=== PATIENT | male | born 1940 | race Two or more races ===

== ENCOUNTER 2017-10-19 07:57 | Outpatient (CLI) | payer OTHER ==
[~2017-10-19 07:57] MED LIST: AREDIA; BTREX; HYDROCHLOROTH12.5 M1; INTEGRA F; NORVASC10 MG; PRILOSEC10 MG; SYNTEST D.S TAB1 TAB; TAMSULOSIN; [UNRECOGNIZED DRUG - OTHER]
== END 2017-10-19 08:34 | disposition home or self-care (01) ==
LOC: LAB 07:57
DX: C64.2 Malignant neoplasm of left kidney, except renal pelvis (principal); C79.51 Secondary malignant neoplasm of bone; D63.1 Anemia in chronic kidney disease; D51.3 Other dietary vitamin B12 deficiency anemia; I10 Essential (primary) hypertension; E03.2 Hypothyroidism due to medicaments and other exogenous substances; E55.9 Vitamin D deficiency, unspecified; K31.83 Achlorhydria; R97.0 Elevated carcinoembryonic antigen [CEA]; R97.8 Other abnormal tumor markers; D50.8 Other iron deficiency anemias; D51.8 Other vitamin B12 deficiency anemias; E03.8 Other specified hypothyroidism; K90.89 Other intestinal malabsorption; N40.0 Benign prostatic hyperplasia without lower urinary tract symptoms

== ENCOUNTER 2018-01-19 08:18 | Outpatient (CLI) | payer OTHER | END 2018-01-19 12:01 | disposition home or self-care (01) | LOC: LAB 08:18 | DX: N40.0 Benign prostatic hyperplasia without lower urinary tract symptoms (principal); C64.2 Malignant neoplasm of left kidney, except renal pelvis; R97.20 Elevated prostate specific antigen [PSA]; C79.51 Secondary malignant neoplasm of bone; D63.1 Anemia in chronic kidney disease; D51.3 Other dietary vitamin B12 deficiency anemia; I10 Essential (primary) hypertension; E03.2 Hypothyroidism due to medicaments and other exogenous substances; E55.9 Vitamin D deficiency, unspecified; K31.83 Achlorhydria; R97.0 Elevated carcinoembryonic antigen [CEA]; D50.8 Other iron deficiency anemias; D51.8 Other vitamin B12 deficiency anemias; E03.8 Other specified hypothyroidism; R97.8 Other abnormal tumor markers ==

== ENCOUNTER 2018-05-24 07:43 | Outpatient (CLI) | payer OTHER | END 2018-05-24 08:30 | disposition home or self-care (01) | LOC: LAB 07:43 | DX: C64.2 Malignant neoplasm of left kidney, except renal pelvis (principal); C79.51 Secondary malignant neoplasm of bone; D63.1 Anemia in chronic kidney disease; D51.3 Other dietary vitamin B12 deficiency anemia; I10 Essential (primary) hypertension; E03.2 Hypothyroidism due to medicaments and other exogenous substances; E55.9 Vitamin D deficiency, unspecified; K31.83 Achlorhydria; R97.0 Elevated carcinoembryonic antigen [CEA]; R97.8 Other abnormal tumor markers; D50.8 Other iron deficiency anemias; D51.8 Other vitamin B12 deficiency anemias; E03.8 Other specified hypothyroidism; D50.0 Iron deficiency anemia secondary to blood loss (chronic); R19.5 Other fecal abnormalities; R79.82 Elevated C-reactive protein (CRP) ==

== ENCOUNTER 2018-11-17 09:13 | Outpatient (CLI) | payer OTHER | END 2018-11-17 09:41 | disposition home or self-care (01) | LOC: LAB 09:13 | DX: C64.2 Malignant neoplasm of left kidney, except renal pelvis (principal); C79.51 Secondary malignant neoplasm of bone; D63.1 Anemia in chronic kidney disease; D51.3 Other dietary vitamin B12 deficiency anemia; I10 Essential (primary) hypertension; E03.2 Hypothyroidism due to medicaments and other exogenous substances; E55.9 Vitamin D deficiency, unspecified; K31.83 Achlorhydria; R97.0 Elevated carcinoembryonic antigen [CEA]; R97.8 Other abnormal tumor markers; D50.8 Other iron deficiency anemias; D51.8 Other vitamin B12 deficiency anemias; E03.8 Other specified hypothyroidism; R25.9 Unspecified abnormal involuntary movements; C22.9 Malignant neoplasm of liver, not specified as primary or secondary; E78.2 Mixed hyperlipidemia; I11.9 Hypertensive heart disease without heart failure; E56.8 Deficiency of other vitamins; N39.0 Urinary tract infection, site not specified; Z12.11 Encounter for screening for malignant neoplasm of colon; R19.5 Other fecal abnormalities; N19 Unspecified kidney failure; E11.9 Type 2 diabetes mellitus without complications; K92.1 Melena; C18.0 Malignant neoplasm of cecum; R80.8 Other proteinuria ==

== ENCOUNTER 2018-12-18 07:49 | Outpatient (CLI) | payer OTHER | END 2018-12-18 07:55 | disposition home or self-care (01) | LOC: LAB 07:49 | DX: N19 Unspecified kidney failure (principal) ==

== ENCOUNTER 2019-04-05 05:05 | Day surgery (SDC) | payer OTHER ==
[~2019-04-05 05:05] MED LIST changes: +SYNTHROID100 MCG PO
== END 2019-04-05 20:05 | disposition home or self-care (01) ==
LOC: CIR.AMB 05:05
DX: C67.2 Malignant neoplasm of lateral wall of bladder (principal); C67.4 Malignant neoplasm of posterior wall of bladder; C67.5 Malignant neoplasm of bladder neck

== ENCOUNTER 2019-04-19 08:36 | Outpatient (CLI) | payer OTHER | END 2019-04-19 08:50 | disposition home or self-care (01) | LOC: MRI 08:36 | DX: C67.1 Malignant neoplasm of dome of bladder (principal) | CPT/HCPCS: 72195; 74181 ==

== ENCOUNTER 2019-04-24 07:50 | Outpatient (CLI) | payer OTHER | END 2019-04-24 08:02 | disposition home or self-care (01) | LOC: LAB 07:50 | DX: N18.3 Chronic kidney disease, stage 3 (moderate) (principal); E87.5 Hyperkalemia ==

== ENCOUNTER 2019-04-24 14:34 | Inpatient (IN) | payer OTHER ==
[~2019-04-24] VITALS: Ht 172.7 cm; Wt 65.3 kg
[2019-04-29] MEDS ORDERED: [UNRECOGNIZED DRUG - OTHER] PO (08:23)
[2019-04-29] MEDS ORDERED: IBERSARTAN PO (08:24)
[2019-04-29] MEDS ORDERED: B TREX PO (08:25)
[2019-05-13] MEDS ORDERED: IRBESARTAN-HCT1 EACH PO (08:18)
[2019-05-13] MEDS ORDERED: TAMSULOSIN HCL0.4 MG PO (08:20)
== END 2019-05-21 14:29 | disposition home or self-care (01) | DRG 657 ==
LOC: CIR.AMB 04-29 07:15 → EDSTATUS 04-29 07:15 → ADM 04-29 07:15 → O/R 05-13 05:55 → SURH 05-13 05:55
PROVIDERS: Surgery; ADMIT Urology
PROC: 0T164ZB Bypass Right Ureter to Bladder, Percutaneous Endoscopic Approach (ICD-10-PCS; 2019-05-13)
PROC: 0DTB0ZZ Resection of Ileum, Open Approach (ICD-10-PCS; 2019-05-13)
PROC: 0DTK0ZZ Resection of Ascending Colon, Open Approach (ICD-10-PCS; 2019-05-13)
PROC: 0TB68ZZ Excision of Right Ureter, Via Natural or Artificial Opening Endoscopic (ICD-10-PCS; principal; 2019-05-13 07:00)
PROC: 07BB4ZZ Excision of Mesenteric Lymphatic, Percutaneous Endoscopic Approach (ICD-10-PCS; 2019-05-13 07:00)
PROC: 30233N1 Transfusion of Nonautologous Red Blood Cells into Peripheral Vein, Percutaneous Approach (ICD-10-PCS; 2019-05-16)
DX: C66.1 Malignant neoplasm of right ureter (principal); C78.4 Secondary malignant neoplasm of small intestine; C77.5 Secondary and unspecified malignant neoplasm of intrapelvic lymph nodes; C77.2 Secondary and unspecified malignant neoplasm of intra-abdominal lymph nodes; D62 Acute posthemorrhagic anemia; C67.8 Malignant neoplasm of overlapping sites of bladder; I13.10 Hypertensive heart and chronic kidney disease without heart failure, with stage 1 through stage 4 chronic kidney disease, or unspecified chronic kidney disease; N18.3 Chronic kidney disease, stage 3 (moderate); R73.01 Impaired fasting glucose; E03.8 Other specified hypothyroidism; N40.0 Benign prostatic hyperplasia without lower urinary tract symptoms

== ENCOUNTER 2019-05-27 09:21 | Outpatient (CLI) | payer OTHER ==
[~2019-05-27 09:21] MED LIST changes: +B TREX PO; +IBERSARTAN PO; +IRBESARTAN-HCT1 EACH PO; +TAMSULOSIN HCL0.4 MG PO; +[UNRECOGNIZED DRUG - OTHER] PO
== END 2019-05-27 15:03 | disposition home or self-care (01) ==
LOC: RX STUDY 09:21
DX: C67.9 Malignant neoplasm of bladder, unspecified (principal)
CPT/HCPCS: 51600; 74430; Q9958

== ENCOUNTER 2019-06-15 07:50 | Outpatient (CLI) | payer OTHER | END 2019-06-15 08:04 | disposition home or self-care (01) | LOC: LAB 07:50 | DX: C67.9 Malignant neoplasm of bladder, unspecified (principal); C64.2 Malignant neoplasm of left kidney, except renal pelvis; C79.51 Secondary malignant neoplasm of bone; D63.1 Anemia in chronic kidney disease; D51.3 Other dietary vitamin B12 deficiency anemia; I10 Essential (primary) hypertension; E03.2 Hypothyroidism due to medicaments and other exogenous substances; E55.9 Vitamin D deficiency, unspecified; K31.83 Achlorhydria; R97.0 Elevated carcinoembryonic antigen [CEA]; R97.8 Other abnormal tumor markers; D50.8 Other iron deficiency anemias; D51.8 Other vitamin B12 deficiency anemias; N39.0 Urinary tract infection, site not specified; I11.9 Hypertensive heart disease without heart failure; E78.2 Mixed hyperlipidemia ==

== ENCOUNTER 2019-07-02 06:50 | Day surgery (SDC) | payer OTHER ==
[~2019-07-02 06:50] MED LIST changes: +TAMS0.4C
== END 2019-07-02 16:15 | disposition home or self-care (01) ==
LOC: CIR.AMB 06:50
DX: C66.1 Malignant neoplasm of right ureter (principal)
CPT/HCPCS: 36561; C1751

== ENCOUNTER 2019-07-26 07:51 | Outpatient (CLI) | payer OTHER | END 2019-07-26 08:06 | disposition home or self-care (01) | LOC: LAB 07:51 | DX: C64.2 Malignant neoplasm of left kidney, except renal pelvis (principal); C79.51 Secondary malignant neoplasm of bone; D63.1 Anemia in chronic kidney disease; I10 Essential (primary) hypertension; E03.2 Hypothyroidism due to medicaments and other exogenous substances; E55.9 Vitamin D deficiency, unspecified; K31.83 Achlorhydria; R97.0 Elevated carcinoembryonic antigen [CEA]; R97.8 Other abnormal tumor markers; D50.8 Other iron deficiency anemias; D51.8 Other vitamin B12 deficiency anemias; K90.89 Other intestinal malabsorption; E78.2 Mixed hyperlipidemia; E03.8 Other specified hypothyroidism ==

== ENCOUNTER → 2019-08-17 08:14 | Outpatient (CLI) | payer OTHER | END | disposition home or self-care (01) | LOC: LAB 08:14 | DX: C64.2 Malignant neoplasm of left kidney, except renal pelvis (principal); C67.8 Malignant neoplasm of overlapping sites of bladder; C79.51 Secondary malignant neoplasm of bone; D63.1 Anemia in chronic kidney disease; D51.3 Other dietary vitamin B12 deficiency anemia; I10 Essential (primary) hypertension; E03.2 Hypothyroidism due to medicaments and other exogenous substances; E55.9 Vitamin D deficiency, unspecified; K31.83 Achlorhydria; R97.0 Elevated carcinoembryonic antigen [CEA]; R97.8 Other abnormal tumor markers; D50.8 Other iron deficiency anemias; D51.8 Other vitamin B12 deficiency anemias; C22.8 Malignant neoplasm of liver, primary, unspecified as to type; C25.8 Malignant neoplasm of overlapping sites of pancreas ==

== ENCOUNTER → 2019-09-06 | Outpatient (CLI) | payer OTHER | END | disposition home or self-care (01) | LOC: LAB 08:06 | DX: C67.8 Malignant neoplasm of overlapping sites of bladder (principal); C64.2 Malignant neoplasm of left kidney, except renal pelvis; C79.51 Secondary malignant neoplasm of bone; D63.1 Anemia in chronic kidney disease; D51.3 Other dietary vitamin B12 deficiency anemia; I10 Essential (primary) hypertension; E03.2 Hypothyroidism due to medicaments and other exogenous substances; E55.9 Vitamin D deficiency, unspecified; K31.83 Achlorhydria; R97.0 Elevated carcinoembryonic antigen [CEA]; R97.8 Other abnormal tumor markers ==

== ENCOUNTER 2019-10-11 07:54 | Outpatient (CLI) | payer OTHER | END 2019-10-11 08:07 | disposition home or self-care (01) | LOC: LAB 07:54 | DX: C67.8 Malignant neoplasm of overlapping sites of bladder (principal); C64.2 Malignant neoplasm of left kidney, except renal pelvis; C79.51 Secondary malignant neoplasm of bone; D63.1 Anemia in chronic kidney disease; D51.3 Other dietary vitamin B12 deficiency anemia; I10 Essential (primary) hypertension; E03.2 Hypothyroidism due to medicaments and other exogenous substances; E55.9 Vitamin D deficiency, unspecified; K31.83 Achlorhydria; R97.0 Elevated carcinoembryonic antigen [CEA]; R97.8 Other abnormal tumor markers; E78.2 Mixed hyperlipidemia; E03.8 Other specified hypothyroidism; D50.8 Other iron deficiency anemias; D51.8 Other vitamin B12 deficiency anemias ==

== ENCOUNTER 2019-10-14 09:05 | Outpatient (CLI) | payer OTHER | END 2019-10-14 11:20 | disposition home or self-care (01) | LOC: SONOGRAMA 09:05 → MAMO-SONO 11:15 → SONOGRAMA 11:20 | DX: N40.0 Benign prostatic hyperplasia without lower urinary tract symptoms (principal); C64.2 Malignant neoplasm of left kidney, except renal pelvis; C67.8 Malignant neoplasm of overlapping sites of bladder; C66.1 Malignant neoplasm of right ureter ==

== ENCOUNTER → 2019-11-14 08:34 | Outpatient (CLI) | payer OTHER | END | disposition home or self-care (01) | LOC: LAB 08:34 | DX: D50.8 Other iron deficiency anemias (principal); R32 Unspecified urinary incontinence; I10 Essential (primary) hypertension; C67.8 Malignant neoplasm of overlapping sites of bladder; D64.2 Secondary sideroblastic anemia due to drugs and toxins; C79.51 Secondary malignant neoplasm of bone; D63.1 Anemia in chronic kidney disease; D51.3 Other dietary vitamin B12 deficiency anemia; E03.2 Hypothyroidism due to medicaments and other exogenous substances; E55.9 Vitamin D deficiency, unspecified; K31.83 Achlorhydria; R97.0 Elevated carcinoembryonic antigen [CEA]; R97.8 Other abnormal tumor markers ==

== ENCOUNTER 2019-11-18 08:39 | Outpatient (CLI) | payer OTHER | END 2019-11-18 15:00 | disposition home or self-care (01) | LOC: MRI 08:39 | DX: C67.9 Malignant neoplasm of bladder, unspecified (principal) | CPT/HCPCS: 72197; 74183; A9575 ==

== ENCOUNTER → 2020-04-23 07:26 | Outpatient (CLI) | payer OTHER | END | disposition home or self-care (01) | LOC: LAB 07:26 | PROVIDERS: ATTEND Internal Medicine Hematology & Oncology | DX: D50.8 Other iron deficiency anemias (principal); I10 Essential (primary) hypertension; C25.9 Malignant neoplasm of pancreas, unspecified; R97.8 Other abnormal tumor markers; R97.0 Elevated carcinoembryonic antigen [CEA]; C67.9 Malignant neoplasm of bladder, unspecified; C64.2 Malignant neoplasm of left kidney, except renal pelvis; C79.51 Secondary malignant neoplasm of bone; D63.1 Anemia in chronic kidney disease; D51.3 Other dietary vitamin B12 deficiency anemia; E03.2 Hypothyroidism due to medicaments and other exogenous substances; E55.9 Vitamin D deficiency, unspecified; K31.83 Achlorhydria; R19.5 Other fecal abnormalities ==

== ENCOUNTER 2020-05-12 10:34 | Outpatient (CLI) | payer OTHER | END 2020-05-12 14:55 | disposition home or self-care (01) | LOC: OFIC 805 10:34 | PROVIDERS: ATTEND Otolaryngology | DX: R22.1 Localized swelling, mass and lump, neck (principal); H61.23 Impacted cerumen, bilateral ==

== ENCOUNTER 2020-05-18 07:37 | Outpatient (CLI) | payer OTHER | END 2020-05-18 07:57 | disposition home or self-care (01) | LOC: TOM 07:37 | PROVIDERS: ATTEND Otolaryngology | DX: K11.8 Other diseases of salivary glands (principal) ==

== ENCOUNTER 2020-05-21 06:57 | Outpatient (CLI) | payer OTHER | END 2020-05-21 07:06 | disposition home or self-care (01) | LOC: LAB 06:57 | PROVIDERS: ATTEND Internal Medicine Hematology & Oncology | DX: D50.8 Other iron deficiency anemias (principal); I10 Essential (primary) hypertension; E03.8 Other specified hypothyroidism; C25.9 Malignant neoplasm of pancreas, unspecified; R97.8 Other abnormal tumor markers; R97.0 Elevated carcinoembryonic antigen [CEA]; N39.0 Urinary tract infection, site not specified; C67.9 Malignant neoplasm of bladder, unspecified; C64.2 Malignant neoplasm of left kidney, except renal pelvis; C79.51 Secondary malignant neoplasm of bone; D63.1 Anemia in chronic kidney disease; D51.3 Other dietary vitamin B12 deficiency anemia; E03.2 Hypothyroidism due to medicaments and other exogenous substances; E55.9 Vitamin D deficiency, unspecified; K31.83 Achlorhydria; R19.5 Other fecal abnormalities ==

== ENCOUNTER 2020-05-27 08:14 | Outpatient (CLI) | payer OTHER | END 2020-05-27 09:30 | disposition home or self-care (01) | LOC: OFIC 805 08:14 | PROVIDERS: ATTEND Otolaryngology | DX: R22.1 Localized swelling, mass and lump, neck (principal); H61.21 Impacted cerumen, right ear ==

== ENCOUNTER 2020-06-12 07:29 | Outpatient (CLI) | payer OTHER | END 2020-06-12 07:33 | disposition home or self-care (01) | LOC: LAB 07:29 | PROVIDERS: ATTEND Internal Medicine Hematology & Oncology | DX: D50.8 Other iron deficiency anemias (principal); I10 Essential (primary) hypertension; E03.8 Other specified hypothyroidism; C67.8 Malignant neoplasm of overlapping sites of bladder; C64.2 Malignant neoplasm of left kidney, except renal pelvis; C79.51 Secondary malignant neoplasm of bone; D63.1 Anemia in chronic kidney disease; D51.3 Other dietary vitamin B12 deficiency anemia; E03.2 Hypothyroidism due to medicaments and other exogenous substances; E55.9 Vitamin D deficiency, unspecified; K31.83 Achlorhydria; R97.0 Elevated carcinoembryonic antigen [CEA]; R97.8 Other abnormal tumor markers; R19.5 Other fecal abnormalities ==

== ENCOUNTER 2020-06-12 08:37 | Outpatient (CLI) | payer OTHER | END 2020-06-12 08:52 | disposition home or self-care (01) | LOC: NUCLEAR 08:37 | PROVIDERS: ATTEND Internal Medicine Cardiovascular Disease | DX: I67.89 Other cerebrovascular disease (principal) ==

== ENCOUNTER → 2020-06-25 | Outpatient (CLI) | payer OTHER | END | disposition home or self-care (01) | LOC: OFIC 805 09:15 | PROVIDERS: ATTEND Otolaryngology | DX: R13.19 Other dysphagia (principal); K11.7 Disturbances of salivary secretion; R07.0 Pain in throat; K12.30 Oral mucositis (ulcerative), unspecified ==

== ENCOUNTER 2020-07-24 07:16 | Outpatient (CLI) | payer OTHER | END 2020-07-24 15:00 | disposition home or self-care (01) | LOC: LAB 07:16 | PROVIDERS: ATTEND Internal Medicine Hematology & Oncology | DX: D50.8 Other iron deficiency anemias (principal); I10 Essential (primary) hypertension; E03.8 Other specified hypothyroidism; R97.8 Other abnormal tumor markers; C25.9 Malignant neoplasm of pancreas, unspecified; R97.0 Elevated carcinoembryonic antigen [CEA]; C67.9 Malignant neoplasm of bladder, unspecified; C64.2 Malignant neoplasm of left kidney, except renal pelvis; C79.51 Secondary malignant neoplasm of bone; D63.1 Anemia in chronic kidney disease; D51.3 Other dietary vitamin B12 deficiency anemia; E03.2 Hypothyroidism due to medicaments and other exogenous substances; E55.9 Vitamin D deficiency, unspecified; K31.83 Achlorhydria; R19.5 Other fecal abnormalities ==

== ENCOUNTER 2020-11-05 12:25 | Outpatient (CLI) | payer OTHER | END 2020-11-05 17:11 | disposition home or self-care (01) | LOC: OFIC 805 12:25 | PROVIDERS: ATTEND Otolaryngology | DX: K11.7 Disturbances of salivary secretion (principal); R13.19 Other dysphagia; R07.0 Pain in throat; K12.30 Oral mucositis (ulcerative), unspecified ==

== ENCOUNTER 2020-12-01 08:22 | Outpatient (CLI) | payer OTHER | END 2020-12-01 08:52 | disposition home or self-care (01) | LOC: MRI 08:22 | PROVIDERS: ATTEND Orthopaedic Surgery | DX: M25.462 Effusion, left knee (principal); M25.561 Pain in right knee; M25.562 Pain in left knee | CPT/HCPCS: 73718 ==

== ENCOUNTER 2021-01-18 07:29 | Outpatient (CLI) | payer OTHER | END 2021-01-18 07:33 | disposition home or self-care (01) | LOC: LAB 07:29 | PROVIDERS: ATTEND Internal Medicine Hematology & Oncology | DX: I10 Essential (primary) hypertension (principal); R74.02 Elevation of levels of lactic acid dehydrogenase [LDH]; K76.89 Other specified diseases of liver; C25.9 Malignant neoplasm of pancreas, unspecified; R97.8 Other abnormal tumor markers; R97.0 Elevated carcinoembryonic antigen [CEA]; C67.9 Malignant neoplasm of bladder, unspecified; C64.2 Malignant neoplasm of left kidney, except renal pelvis; C79.51 Secondary malignant neoplasm of bone; D63.1 Anemia in chronic kidney disease; D51.3 Other dietary vitamin B12 deficiency anemia; E03.2 Hypothyroidism due to medicaments and other exogenous substances; E55.9 Vitamin D deficiency, unspecified; K31.83 Achlorhydria; R19.8 Other specified symptoms and signs involving the digestive system and abdomen ==

== ENCOUNTER 2021-02-01 14:49 | Emergency (ER) | payer OTHER ==
[~2021-02-01] VITALS: Ht 165.1 cm; Wt 52.2 kg
[2021-02-01] MEDS ORDERED: ATORVASTATIN CA10 MG (15:14)
[2021-02-01] MEDS ORDERED: PANTOPRAZOLE SO40 MG (15:15)
[2021-02-01] MEDS ORDERED: FINASTERIDE5 MG (15:15)
[2021-02-01] MEDS ORDERED: FOLIVANE-PLUS1 EACH (15:15)
[2021-02-01] MEDS ORDERED: MEDROLPACK PO (19:40)
[2021-02-01] MEDS ORDERED: ACETAMINOPHEN650 M2 PO (19:40)
[2021-02-01] MEDS ORDERED: NORFLEX100MG PO (19:40)
== END 2021-02-01 19:30 | disposition home or self-care (01) ==
LOC: ER 14:49
DX: R07.89 Other chest pain (principal); M25.511 Pain in right shoulder

== ENCOUNTER 2021-03-22 12:07 | Inpatient (IN) | payer OTHER ==
[~2021-03-22] VITALS: Ht 167.6 cm; Wt 54.9 kg
[~2021-03-22 12:07] MED LIST changes: +ACETAMINOPHEN650 M2 PO; +ATORVASTATIN CA10 MG; +FINASTERIDE5 MG; +FOLIVANE-PLUS1 EACH; +MEDROLPACK PO; +NORFLEX100MG PO; +PANTOPRAZOLE SO40 MG
[2021-03-22] MEDS ORDERED: FOLIVANE-PLUS1 EACH (12:41)
--- NOTE | 2021-03-22 12:46 | NUR ---
PTE ALERTA Y ORIENTADA EN MEGAN MIKE ESFERAS, REFIERE CARL SIDO REFERIDO POR DR BENÍTEZ POR HEMOGLOBINA EN 8.3. SE UBICA EN AREA DE OBSERVACION.
--- NOTE | 2021-03-22 13:30 | NUR ---
SE REALIZA EKG A PTE, SE PRESENTA A DR ALONZO QUIEN INIDICA UBICARLO EN AREA CON MONITOR CARDIACO, SE UBICA EN AREA DE CRITICO.
--- NOTE | 2021-03-22 13:32 | NUR ---
SE REALIZA EKG A PTE, SE PRESENTA A DR ALONOZ QUIEN INDICA UBICAR PTE EN AREA CON MONITOR CARDIACO. SE UBICA EN AREA DE CTRITICO, UBICADO EN CAMA NIVEL MAS BAJO, CONECTADO A MONITOR CARDIACO Y OXIMETRIA DE PULSO.
--- NOTE | 2021-03-22 14:00 | NUR ---
SE RECIBE PACIENTE MASCULINO DE 80 ANOS DE EDAD. SE CONECTA A MONITOR CARDIACO, SATUROMETRIA BEN. SE CANALIZA PACIENTE EN BRAZO LOU CON ANGIO #18 Y SE EXTRAEN MUESTRAS DE LEROY EDILBERTO ORDEN MEDICA. SE ORIENTA A PACIENTE SOBRE MEDIDAS DE SEGURIDAD Y ORDENES MEDICAS.
[2021-03-23] MEDS ORDERED: INTESTINEX680 M1 (08:20)
[2021-03-23] MEDS ORDERED: ATORVASTATIN CA10 MG (08:20)
[2021-03-25] MEDS ORDERED: AMIODARONE HCL200 MG PO (14:35)
[2021-03-25] MEDS ORDERED: INTESTINEX680 M1 PO (14:35)
[2021-03-25] MEDS ORDERED: METOPROLOL TART50 MG PO (14:35)
[2021-03-25] MEDS ORDERED: ELIQUIS2.5 MG PO (14:35)
[2021-03-25] MEDS ORDERED: ATORVASTATIN CA10 MG PO (14:35)
[2021-03-25] MEDS ORDERED: PROTEINEX-18 LI30 ML PO (14:35)
[2021-03-25] MEDS ORDERED: FINASTERIDE5 MG PO (14:35)
[2021-03-25] MEDS ORDERED: LEVOTHYROXINE125 MCG PO (14:35)
[2021-03-25] MEDS ORDERED: TAMS0.4C PO (14:35)
[2021-03-25] MEDS ORDERED: CARDIZEM60 MG PO (14:35)
[2021-03-25] MEDS ORDERED: AMPICILLIN TRI500 MG PO (14:35)
== END 2021-03-25 17:54 | disposition home or self-care (01) | DRG 687 ==
LOC: ER 12:07 → SEC-K 16:04 → SURH 16:04
PROVIDERS: ADMIT Internal Medicine Geriatric Medicine; ATTEND Internal Medicine Geriatric Medicine
PROC: B24BZZZ Ultrasonography of Heart with Aorta (ICD-10-PCS; 2021-03-22)
PROC: 8E0ZXY6 Isolation (ICD-10-PCS; 2021-03-22)
PROC: 4A12X4Z Monitoring of Cardiac Electrical Activity, External Approach (ICD-10-PCS; 2021-03-22)
PROC: 30233N1 Transfusion of Nonautologous Red Blood Cells into Peripheral Vein, Percutaneous Approach (ICD-10-PCS; principal; 2021-03-23)
DX: C64.2 Malignant neoplasm of left kidney, except renal pelvis (principal); C79.51 Secondary malignant neoplasm of bone; I48.92 Unspecified atrial flutter; N17.8 Other acute kidney failure; C67.9 Malignant neoplasm of bladder, unspecified; D63.0 Anemia in neoplastic disease; E03.8 Other specified hypothyroidism; I13.10 Hypertensive heart and chronic kidney disease without heart failure, with stage 1 through stage 4 chronic kidney disease, or unspecified chronic kidney disease; N18.31 Chronic kidney disease, stage 3a; Z20.822 Contact with and (suspected) exposure to COVID-19; D53.0 Protein deficiency anemia

== ENCOUNTER 2021-04-09 10:21 | Outpatient (CLI) | payer OTHER ==
[~2021-04-09 10:21] MED LIST changes: +AMIODARONE HCL200 MG PO; +AMPICILLIN TRI500 MG PO; +ATORVASTATIN CA10 MG PO; +CARDIZEM60 MG PO; +ELIQUIS2.5 MG PO; +FINASTERIDE5 MG PO; +INTESTINEX680 M1; +INTESTINEX680 M1 PO; +LEVOTHYROXINE125 MCG PO; +METOPROLOL TART50 MG PO; +PROTEINEX-18 LI30 ML PO; +TAMS0.4C PO
== END 2021-04-09 10:31 | disposition home or self-care (01) ==
LOC: TOM 10:21
PROVIDERS: ATTEND Psychiatry & Neurology Clinical Neurophysiology
DX: J32.0 Chronic maxillary sinusitis (principal); F01.50 Vascular dementia, unspecified severity, without behavioral disturbance, psychotic disturbance, mood disturbance, and anxiety

== ENCOUNTER → 2021-05-18 11:43 | Outpatient (CLI) | payer OTHER | END | disposition home or self-care (01) | LOC: OFIC 805 05-03 09:00 → RAD 11:43 | PROVIDERS: ATTEND Internal Medicine Cardiovascular Disease | DX: I50.9 Heart failure, unspecified (principal) ==

== ENCOUNTER 2021-05-19 12:52 | Outpatient (CLI) | payer OTHER | END 2021-05-19 12:55 | disposition home or self-care (01) | LOC: TOM 12:52 | PROVIDERS: ATTEND Urology | DX: J16.8 Pneumonia due to other specified infectious organisms (principal); C67.9 Malignant neoplasm of bladder, unspecified ==